=== PATIENT | male | born 1955 | race Caucasian/White ===

== ENCOUNTER 2016-07-02 16:36 | Emergency (ER) | payer MEDICARE ==
[~2016-07-02] VITALS: Wt 70.8 kg
--- NOTE | ~2016-07-02 | EKG ---
[place], [place] ELECTROCARDIOGRAM REPORT NAME: ADIEN BUSTAMANTE UNIT #: [id number] ROOM: DOCTOR: GORAN SNELL MD BIRTHDATE: [birth year] DOS: 07/02/2016 FINDINGS: 1. Sinus rhythm at the rate of 77 with left atrial enlargement. 2. Right bundle-branch block. 3. Abnormal electrocardiogram. GORAN SNELL MD CM:EKGRPT:ELECTROCARDIOGRAM REPORT [id number] GORAN SNELL MD
[~2016-07-02 16:36] MED LIST: ADVAIR 100/501 E1 INH; ALBUTEROL0.09 MG/A2 IH; AMBIEN5 MG PO; ASPIRIN325 MG PO; ASPIRIN81 M1 PO; FLEXERIL10 MG PO; HYDROCODONE BIT1 T11 PO; IMDUR SA30 MG PO; KEPPRA500 MG PO; LEVOFLOXACIN500 MG PO; LIPITOR20 MG PO; METOPROLOL SUCC25 M2 PO; MOTRIN800 MG PO; PERCOCET 325 MG1 TA7 PO; PREDNICOT20 MG PO; PREDNISONE20 MG PO; SPIRIVA18 MCG; SYMBICORT1 AE1; ULTRAM50 MG PO; ZOLOFT; ZOLOFT100 MG PO
[2016-07-02 17:49] LABS: BASO # 0.1 10*3/uL (0.0-0.1); BASO % 0.6 % (0.0-1.0); EOS # 0.1 10*3/uL (0.0-0.4); HEMATOCRIT 41.9 % (42.0-52.0); HEMOGLOBIN 14.3 g/dl (14.0-18.0); LYMPH # 2.3 10*3/uL (1.3-4.4); LYMPH % 25.3 % (27.0-41.0); MEAN CORPUSCULAR HGB 33.1 pg (27.0-31.0); MEAN CORPUSCULAR HGB CONC 34.1 g/dl (33.0-37.0); MEAN PLATELET VOLUME 8.7 fl (9.6-12.3); MONO # 0.7 10*3/uL (0.1-1.0); MONO % 8.1 % (3.0-9.0); NEUT # 5.8 10*3/uL (2.3-7.9); NEUT % 64.8 % (47.0-73.0); PLATELET COUNT AUTOMATED 302 10*3/uL (130-400); RED BLOOD COUNT 4.32 10*6/uL (4.50-5.90); RED CELL DISTRI WIDTH 13.1 % (0-14.5)
[2016-07-02 18:09] LABS: BUN 10 mg/dl (7-24); CARBON DIOXIDE 25 mmol/L (21-32); CHLORIDE 100 mmol/L (98-107); EST GLOM FILT AFRICAN AMERICAN > 60 ml/min; GLUCOSE 76 mg/dL (65-99); POTASSIUM 3.9 mmol/L (3.5-5.1); SODIUM 132 mmol/L (136-145)
[2016-07-02 18:10] LABS: TROPONIN I < 0.015 ng/ml (<0.045)
== END 2016-07-02 18:27 | disposition home or self-care (01) ==
LOC: ED 16:36
PROVIDERS: Emergency Medicine
DX: S46.912A Strain of unspecified muscle, fascia and tendon at shoulder and upper arm level, left arm, initial encounter (principal); J44.9 Chronic obstructive pulmonary disease, unspecified; F32.9 Major depressive disorder, single episode, unspecified; G40.909 Epilepsy, unspecified, not intractable, without status epilepticus; F17.200 Nicotine dependence, unspecified, uncomplicated; Z86.2 Personal history of diseases of the blood and blood-forming organs and certain disorders involving the immune mechanism; Z98.890 Other specified postprocedural states; Z90.49 Acquired absence of other specified parts of digestive tract; Z79.899 Other long term (current) drug therapy; W01.198A Fall on same level from slipping, tripping and stumbling with subsequent striking against other object, initial encounter; Y93.89 Activity, other specified; Y92.89 Other specified places as the place of occurrence of the external cause; Y99.9 Unspecified external cause status

== ENCOUNTER 2016-07-07 18:18 | Inpatient (IN) | payer MEDICARE ==
[~2016-07-07] VITALS: Ht 177.8 cm; Wt 60.8 kg
--- NOTE | ~2016-07-07 | CON ---
[place], [place] REPORT OF CONSULTATION NAME: AIDEN BUSTAMANTE UNIT #: [id number] ROOM: 515 DOCTOR: SHARAD EDUARDO MD BIRTHDATE: [birth year] DOS: 07/09/2016 GASTROENDOSCOPIC REPORT HISTORY OF PRESENT ILLNESS: A 61-year-old gentleman who has presented with chief complaint of hematemesis had been called for addressing his GI bleed. Gentleman is drinking approximately 30 to 40 bottle of beer per day 30 or about 40 bottles of beer per day. The patient had a CT scan of the abdomen done, no acute findings. CBC: White blood cell was 4, H and H of 14 and 41, platelets 302. Basic metabolic panel, GFR greater than 60. Electrolytes balanced. Troponin within normal limits. Chest x-ray, no acute pathology, left humerus, no acute pathology, no fracture. Lactic acid was 2.8, lactic acid followup was 1.0. CT scan of the abdomen and pelvic reassessment, wall thickening of the distal esophagus suggestive of esophagitis, consider evaluation with endoscopy was recommended. Serum alcohol level was less than 3 despite him drinking 40 bottles of beer. His H and H did not drop. His drug screening was negative. Hemoglobin A1c is 5. No acute pathology otherwise. PAST MEDICAL HISTORY: Associated back pain, neck pain otherwise, history of seizure, history of ETOH and nicotine dependency. History of falling episode. PAST SURGICAL HISTORY: Back, neck, appendectomy, rotator cuff. SOCIAL HISTORY: Smoker and alcohol consumer. FAMILY HISTORY: Noncontributory. ALLERGIES: To no known medications. MEDICATIONS: Medication list has been reviewed including aspirin, atorvastatin, metoprolol, naproxen, isosorbide. REVIEW OF SYSTEMS: In general, HEENT: Denies double vision, blurred vision. RESPIRATORY: Denies shortness of breath. CARDIOVASCULAR: Denies chest pain. DIGESTIVE SYSTEM: Hematemesis, abnormal CT scan of the esophagus. NEUROMUSCULOSKELETAL: No muscle wasting, tremens. PHYSICAL EXAMINATION: VITAL SIGNS: Stable. HEENT: Head normocephalic, nontraumatic. Mouth and buccal mucosa benign. NECK: Supple, no thyromegaly. CHEST: Symmetric anatomy, equal expansion. No wheeze, no rhonchi. HEART: Normal sinus rhythm, no gallop, no murmur. ABDOMEN: Soft. No hepato-organomegaly. Bowel sounds present. No evidence of ascites. No pain. EXTREMITIES: No cyanosis, no pedal edema. NEUROLOGIC: Alert, oriented to time, place, person. Sensory, motor intact. Cranial nerves 2-12 intact. [place], [place] REPORT OF CONSULTATION NAME: AIDEN BUSTAMANTE UNIT #: [id number] ROOM: [facility] DOCTOR: SHARAD EDUARDO MD BIRTHDATE: [birth year] LABORATORY DATA: Reviewed. Records reviewed. GFR normal. Liver function test normal. IMPRESSION: Hematemesis, chronic obstructive pulmonary disease, nicotine and alcohol dependency, anxiety, old history of depression and seizure. PLAN AND DISCUSSION: We will organize EGD today. SHARAD EDUARDO MD CM:CONSTR:REPORT OF CONSULTATION 1215 07/10/16 0256 interface
[2016-07-07 18:18] VITALS: BP 103/71
[2016-07-07] MEDS ORDERED: CYCLOBENZAPRINE10 MG PO (18:41)
[2016-07-07] MEDS ORDERED: NAPROSYN500 MG PO (18:41)
[2016-07-07] MEDS ORDERED: ISOSORBIDE DINI30 MG PO (18:43)
[2016-07-07 19:08] LABS: BASO # 0.1 10*3/uL (0.0-0.1); BASO % 0.7 % (0.0-1.0); EOS # 0.1 10*3/uL (0.0-0.4); EOS % 1.2 % (1.0-4.0); HEMATOCRIT 45.2 % (42.0-52.0); HEMOGLOBIN 15.7 g/dl (14.0-18.0); LYMPH # 1.9 10*3/uL (1.3-4.4); LYMPH % 25.1 % (27.0-41.0); MEAN CELL VOLUME 94.8 fl (80.0-94.0); MEAN CORPUSCULAR HGB 32.9 pg (27.0-31.0); MEAN CORPUSCULAR HGB CONC 34.7 g/dl (33.0-37.0); MEAN PLATELET VOLUME 9.3 fl (9.6-12.3); MONO # 0.5 10*3/uL (0.1-1.0); MONO % 6.8 % (3.0-9.0); NEUT % 66.1 % (47.0-73.0); PLATELET COUNT AUTOMATED 325 10*3/uL (130-400); RED BLOOD COUNT 4.77 10*6/uL (4.50-5.90); RED CELL DISTRI WIDTH 13.1 % (0-14.5); WHITE BLOOD COUNT 7.5 10*3/uL (4.8-10.8)
[2016-07-07 19:26] LABS: INTERNATIONAL NORM RATIO 0.9 (2.0-3.5); PROTHROMBIN TIME 9.6 SECONDS (9.0-12.4)
[2016-07-07 19:30] LABS: ALKALINE PHOSPHATASE 86 U/L (45-117); BILIRUBIN, TOTAL 0.8 mg/dl (0.2-1.0); BUN 10 mg/dl (7-24); CARBON DIOXIDE 25 mmol/L (21-32); CHLORIDE 98 mmol/L (98-107); EST GLOM FILT AFRICAN AMERICAN > 60 ml/min; GLUCOSE 85 mg/dL (65-99); MAGNESIUM 2.2 mg/dL (1.5-2.1); POTASSIUM 3.9 mmol/L (3.5-5.1); SGOT/AST 135 IU/L (3-35); SGPT/ALT 133 U/L (12-78); SODIUM 137 mmol/L (136-145); TOTAL PROTEIN 7.4 gm/dL (6.4-8.2)
[2016-07-07 19:38] LABS: TROPONIN I < 0.015 ng/ml (<0.045)
[2016-07-07 20:00] VITALS: BP 112/79
[2016-07-07 21:00] VITALS: BP 110/72
[2016-07-07 21:06] LABS: LA>2 REFLEX 2 HR DRAW NOW
[2016-07-07 22:00] VITALS: BP 117/79
[2016-07-08] VITALS: BP 139/82
[2016-07-08 00:20] VITALS: BP 139/82
[2016-07-08 00:25] LABS: HEMATOCRIT 42.7 % (42.0-52.0); HEMOGLOBIN 14.7 g/dl (14.0-18.0)
[2016-07-08] MEDS ORDERED: KEPPRA750 MG PO (01:23)
[2016-07-08] MEDS ORDERED: ZOLOFT50 MG PO (01:25)
[2016-07-08 06:41] LABS: BASO # 0.1 10*3/uL (0.0-0.1); BASO % 0.8 % (0.0-1.0); EOS # 0.1 10*3/uL (0.0-0.4); EOS % 1.3 % (1.0-4.0); HEMATOCRIT 43.9 % (42.0-52.0); HEMOGLOBIN 14.7 g/dl (14.0-18.0); LYMPH # 1.8 10*3/uL (1.3-4.4); LYMPH % 19.5 % (27.0-41.0); MEAN CORPUSCULAR HGB 32.9 pg (27.0-31.0); MEAN CORPUSCULAR HGB CONC 33.5 g/dl (33.0-37.0); MEAN PLATELET VOLUME 9.4 fl (9.6-12.3); MONO # 0.8 10*3/uL (0.1-1.0); MONO % 8.8 % (3.0-9.0); NEUT # 6.4 10*3/uL (2.3-7.9); NEUT % 69.3 % (47.0-73.0); PLATELET COUNT AUTOMATED 314 10*3/uL (130-400); RED BLOOD COUNT 4.47 10*6/uL (4.50-5.90); RED CELL DISTRI WIDTH 13.3 % (0-14.5); WHITE BLOOD COUNT 9.2 10*3/uL (4.8-10.8)
[2016-07-08 06:44] LABS: MEAN CELL VOLUME 98.2 fl (80.0-94.0)
[2016-07-08 06:47] LABS: URINE AMPHETAMINES < 1000 (1000ng/ml); URINE BARBITURATES < 200 (200ng/ml); URINE COCAINE < 300 (300ng/ml)
[2016-07-08 06:57] LABS: HEMOGLOBIN A1c 5.3 % (4.8-5.6)
[2016-07-08 07:17] LABS: BUN 10 mg/dl (7-24); CARBON DIOXIDE 29 mmol/L (21-32); CHLORIDE 103 mmol/L (98-107); CHOLESTEROL 190 mg/dL (<200); EST GLOM FILT AFRICAN AMERICAN > 60 ml/min; FREE T4 0.96 ng/dl (0.76-1.46); GLUCOSE 72 mg/dL (65-99); MAGNESIUM 2.3 mg/dL (1.5-2.1); PHOSPHOROUS 3.3 mg/dL (2.5-4.9); POTASSIUM 4.4 mmol/L (3.5-5.1); SODIUM 141 mmol/L (136-145); TRIGLYCERIDES 98 mg/dl (<150); VLDL CHOLESTEROL 20 mg/dL (6-40)
[2016-07-08 07:24] LABS: HDL CHOLESTEROL 82 mg/dl (40-60); LDL CHOLESTEROL 88 mg/dL (9-159)
[2016-07-08 07:38] LABS: FOLIC ACID 18.49 ng/mL (>5.38); VITAMIN D, 25-HYDROXY 33.3 ng/mL (30-100)
[2016-07-08 08:00] VITALS: BP 123/86
[2016-07-08 12:00] VITALS: BP 126/81
[2016-07-08] MEDS ORDERED: IMDUR SA30 MG PO (14:39)
[2016-07-08 16:00] VITALS: BP 119/65
[2016-07-08 20:00] VITALS: BP 118/80
[2016-07-09] VITALS: BP 123/86
[2016-07-09 06:58] LABS: BASO % 0.6 % (0.0-1.0); EOS # 0.1 10*3/uL (0.0-0.4); EOS % 1.9 % (1.0-4.0); HEMATOCRIT 42.1 % (42.0-52.0); HEMOGLOBIN 14.1 g/dl (14.0-18.0); LYMPH % 28.4 % (27.0-41.0); MEAN CELL VOLUME 98.4 fl (80.0-94.0); MEAN CORPUSCULAR HGB 32.9 pg (27.0-31.0); MEAN CORPUSCULAR HGB CONC 33.5 g/dl (33.0-37.0); MEAN PLATELET VOLUME 9.8 fl (9.6-12.3); MONO # 0.8 10*3/uL (0.1-1.0); NEUT # 4.1 10*3/uL (2.3-7.9); PLATELET COUNT AUTOMATED 279 10*3/uL (130-400); RED BLOOD COUNT 4.28 10*6/uL (4.50-5.90); RED CELL DISTRI WIDTH 13.3 % (0-14.5)
[2016-07-09 07:32] LABS: CHLORIDE 106 mmol/L (98-107); POTASSIUM 3.9 mmol/L (3.5-5.1); SODIUM 140 mmol/L (136-145)
[2016-07-09 07:36] LABS: BUN 10 mg/dl (7-24); CARBON DIOXIDE 31 mmol/L (21-32); EST GLOM FILT AFRICAN AMERICAN > 60 ml/min; GLUCOSE 105 mg/dL (65-99)
[2016-07-09 08:00] VITALS: BP 128/78
[2016-07-09 11:03] VITALS: BP 128/78
== END 2016-07-09 13:00 | disposition left against medical advice (07) | DRG 378 ==
LOC: ED 18:18 → EDHOLD 22:09 → 5E 22:09 → ICCU 22:32 → 5E 23:40
PROVIDERS: Internal Medicine; Student in an Organized Health Care Education/Training Program
DX: K92.2 Gastrointestinal hemorrhage, unspecified (principal); E87.2 Acidosis; F32.9 Major depressive disorder, single episode, unspecified; Z53.21 Procedure and treatment not carried out due to patient leaving prior to being seen by health care provider; J44.9 Chronic obstructive pulmonary disease, unspecified; G40.909 Epilepsy, unspecified, not intractable, without status epilepticus; E78.5 Hyperlipidemia, unspecified; F41.9 Anxiety disorder, unspecified; F19.10 Other psychoactive substance abuse, uncomplicated; F17.200 Nicotine dependence, unspecified, uncomplicated; Z90.49 Acquired absence of other specified parts of digestive tract; Z80.41 Family history of malignant neoplasm of ovary; Z79.82 Long term (current) use of aspirin; Z79.899 Other long term (current) drug therapy

== ENCOUNTER 2016-10-06 18:54 | Emergency (ER) | payer MEDICARE ==
[~2016-10-06 18:54] MED LIST changes: +CYCLOBENZAPRINE10 MG PO; +ISOSORBIDE DINI30 MG PO; +KEPPRA750 MG PO; +NAPROSYN500 MG PO; +ZOLOFT50 MG PO
== END 2016-10-06 22:49 | disposition home or self-care (01) ==
LOC: ED 18:54
DX: S40.022A Contusion of left upper arm, initial encounter (principal); F17.200 Nicotine dependence, unspecified, uncomplicated; Z79.899 Other long term (current) drug therapy; W18.39XA Other fall on same level, initial encounter; Y93.89 Activity, other specified; Y92.89 Other specified places as the place of occurrence of the external cause; Y99.8 Other external cause status

== ENCOUNTER 2017-01-19 01:01 | Inpatient (IN) | payer MEDICARE ==
[2017-01-19] VITALS (7 sets, daily range): BP systolic 88–113; BP diastolic 59–72
[~2017-01-19] VITALS: Ht 177.8 cm; Wt 62.3 kg
[2017-01-19] MEDS ORDERED: NAPROXEN500 MG PO (01:24)
--- NOTE | 2017-01-19 01:24 | NUR ---
PATIENT UNSURE OF MEDICATIONS AND DOSES
[2017-01-19 01:28] LABS: BASO # 0.1 10*3/uL (0.0-0.1); BASO % 0.8 % (0.0-1.0); EOS # 0.1 10*3/uL (0.0-0.4); EOS % 1.4 % (1.0-4.0); HEMATOCRIT 42.2 % (42.0-52.0); HEMOGLOBIN 14.4 g/dl (14.0-18.0); LYMPH # 1.9 10*3/uL (1.3-4.4); LYMPH % 25.8 % (27.0-41.0); MEAN CELL VOLUME 98.6 fl (80.0-94.0); MEAN CORPUSCULAR HGB 33.6 pg (27.0-31.0); MEAN CORPUSCULAR HGB CONC 34.1 g/dl (33.0-37.0); MEAN PLATELET VOLUME 9.2 fl (9.6-12.3); MONO # 0.5 10*3/uL (0.1-1.0); MONO % 6.3 % (3.0-9.0); NEUT # 4.8 10*3/uL (2.3-7.9); NEUT % 65.6 % (47.0-73.0); PLATELET COUNT AUTOMATED 292 10*3/uL (130-400); RED BLOOD COUNT 4.28 10*6/uL (4.50-5.90); RED CELL DISTRI WIDTH 13.2 % (0-14.5); WHITE BLOOD COUNT 7.3 10*3/uL (4.8-10.8)
[2017-01-19 01:38] LABS: ACT PARTIAL THROMBO TIME 28.3 SECONDS (20.8-31.5); INTERNATIONAL NORM RATIO 0.9 (2.0-3.5)
[2017-01-19 01:44] LABS: ALBUMIN 3.6 gm/dl (3.1-4.5); ALKALINE PHOSPHATASE 75 U/L (45-117); BUN 9 mg/dl (7-24); CHLORIDE 100 mmol/L (98-107); CREATININE 0.68 mg/dL (0.70-1.30); LIPASE 119 U/L (73-393); POTASSIUM 3.9 mmol/L (3.5-5.1); SGOT/AST 21 IU/L (3-35); SGPT/ALT 30 U/L (12-78); SODIUM 136 mmol/L (136-145); TOTAL PROTEIN 7.4 gm/dL (6.4-8.2)
[2017-01-19 01:45] LABS: TROPONIN I < 0.015 ng/ml (<0.045)
[2017-01-19 02:15] LABS: BILIRUBIN NEGATIVE (NEGATIVE); BLOOD NEGATIVE (NEGATIVE); CLARITY CLEAR (CLEAR); COLOR YELLOW (YELLOW); GLUCOSE NEGATIVE (NEGATIVE); KETONE NEGATIVE (NEGATIVE); LEUKO ESTERASE NEGATIVE (NEGATIVE); NITRITE NEGATIVE (NEGATIVE); SPECIFIC GRAVITY <= 1.005 (1.005-1.030); UROBILINOGEN 0.2 E.U./dl (0.2-1.0)
[2017-01-19 02:22] LABS: EPITHELIAL CELLS 0-5
[2017-01-19 02:23] LABS: RBC 0-2 rbc/hpf (0-2)
[2017-01-19 02:24] LABS: URINE AMPHETAMINES < 1000 (1000ng/ml); URINE BARBITURATES < 200 (200ng/ml); URINE BENZODIAZEPINES < 200 (200ng/ml); URINE CANNABINOIDS (THC) < 50 (50ng/ml); URINE COCAINE < 300 (300ng/ml); URINE METHADONE < 300 (300ng/ml); URINE OPIATES < 300 (300ng/ml); URINE PHENCYCLIDINE < 25 (25ng/ml)
--- NOTE | 2017-01-19 02:45 | NUR ---
ATTEMPTED TO CALL REPORT
--- NOTE | 2017-01-19 03:20 | NUR ---
A 62, admitted to , under the services of BLANQUITA Escobedo DO with a diagnosis of ALCOHOL INTOXICATION AND UPPER GI BLEED. Chief complaint is NAUSEA. Patient arrived via OTHER from ER. Monitor applied. Initial assessment completed. Vital signs taken and recorded. BLANQUITA ESCOBEDO DO notified of admission to the unit. Orders received. See assessment for past medical history, medications and allergies. Patient and/or family oriented to unit. [facility]. Clothing/patient valuable form completed. SARAHI PATEL
[2017-01-19] MEDS ORDERED: PROAIR HFA8.5 GM INH (03:54)
[2017-01-19 06:32] LABS: BASO # 0.1 10*3/uL (0.0-0.1); BASO % 0.8 % (0.0-1.0); EOS # 0.1 10*3/uL (0.0-0.4); HEMATOCRIT 39.7 % (42.0-52.0); HEMOGLOBIN 13.2 g/dl (14.0-18.0); LYMPH % 33.9 % (27.0-41.0); MEAN CELL VOLUME 98.3 fl (80.0-94.0); MEAN CORPUSCULAR HGB 32.7 pg (27.0-31.0); MEAN CORPUSCULAR HGB CONC 33.2 g/dl (33.0-37.0); MEAN PLATELET VOLUME 8.9 fl (9.6-12.3); MONO # 0.4 10*3/uL (0.1-1.0); MONO % 7.2 % (3.0-9.0); NEUT # 3.3 10*3/uL (2.3-7.9); NEUT % 55.8 % (47.0-73.0); PLATELET COUNT AUTOMATED 281 10*3/uL (130-400); RED BLOOD COUNT 4.04 10*6/uL (4.50-5.90); RED CELL DISTRI WIDTH 13.1 % (0-14.5)
[2017-01-19 06:46] LABS: CHLORIDE 109 mmol/L (98-107); SODIUM 141 mmol/L (136-145)
[2017-01-19 06:56] LABS: ALKALINE PHOSPHATASE 66 U/L (45-117); BUN 6 mg/dl (7-24); CHOLESTEROL 160 mg/dL (<200); CREATININE 0.63 mg/dL (0.70-1.30); HDL CHOLESTEROL 58 mg/dl (40-60); LDL CHOLESTEROL 60 mg/dL (9-159); PHOSPHOROUS 3.6 mg/dL (2.5-4.9); SGOT/AST 17 IU/L (3-35); SGPT/ALT 25 U/L (12-78); TOTAL PROTEIN 6.1 gm/dL (6.4-8.2); TRIGLYCERIDES 209 mg/dl (<150); VLDL CHOLESTEROL 42 mg/dL (6-40)
[2017-01-19 07:00] LABS: ACT PARTIAL THROMBO TIME 28.9 SECONDS (20.8-31.5); INTERNATIONAL NORM RATIO 0.9 (2.0-3.5)
--- NOTE | 2017-01-19 07:01 | NUR ---
DR. EDUARDO NOTIFIED OF CONSULT. THE DOCTOR WAS UPDATED ABOUT THE PATIENTS CONDITION AND LABS. NO CONCERNS FROM THE DOCTOR.
--- NOTE | 2017-01-19 08:49 | NUR ---
PT RESTING COMFORTABLY IN BED. NO SIGNS OF DISTRESS OR WITHDRAWL.
[2017-01-19] MEDS ORDERED: PROTONIX40 MG PO (11:27)
[2017-01-19] MEDS ORDERED: CARAFATE1 G1 PO (11:27)
[2017-01-19 11:31] LABS: VITAMIN D, 25-HYDROXY 31.8 ng/mL (30-100)
--- NOTE | 2017-01-19 13:02 | NUR ---
Discharge instructions reviewed with patient/family. Patient receptive and verbalizes understanding. Follow-up care arranged. Written instructions given to patient/family. PAMELLA ALEX
== END 2017-01-19 13:02 | disposition left against medical advice (07) | DRG 379 ==
LOC: ED 01:01 → EDHOLD 02:29 → 4E 02:37
PROVIDERS: Emergency Medicine Emergency Medical Services; Hospitalist; ADMIT Internal Medicine
DX: K92.2 Gastrointestinal hemorrhage, unspecified (principal); D64.9 Anemia, unspecified; E78.5 Hyperlipidemia, unspecified; F10.229 Alcohol dependence with intoxication, unspecified; I10 Essential (primary) hypertension; F41.9 Anxiety disorder, unspecified; F32.9 Major depressive disorder, single episode, unspecified; J41.8 Mixed simple and mucopurulent chronic bronchitis; G40.909 Epilepsy, unspecified, not intractable, without status epilepticus; Z79.82 Long term (current) use of aspirin; Z79.899 Other long term (current) drug therapy; Z91.81 History of falling; Z90.49 Acquired absence of other specified parts of digestive tract; Z72.0 Tobacco use; Z80.41 Family history of malignant neoplasm of ovary; Z71.6 Tobacco abuse counseling; Z71.41 Alcohol abuse counseling and surveillance of alcoholic; Z71.89 Other specified counseling

== ENCOUNTER 2019-01-25 15:13 | Emergency (ER) | payer MEDICARE ==
[~2019-01-25] VITALS: Ht 177.8 cm; Wt 73.0 kg
[~2019-01-25 15:13] MED LIST changes: +CARAFATE1 G1 PO; +NAPROXEN500 MG PO; +PROAIR HFA8.5 GM INH; +PROTONIX40 MG PO
[2019-01-25 16:04] LABS: BASO # 0.1 10*3/uL (0.0-0.1); BASO % 0.7 % (0.0-1.0); EOS # 0.1 10*3/uL (0.0-0.4); EOS % 1.2 % (1.0-4.0); HEMATOCRIT 43.1 % (42.0-52.0); HEMOGLOBIN 14.1 g/dl (14.0-18.0); LYMPH # 1.4 10*3/uL (1.3-4.4); LYMPH % 20.1 % (27.0-41.0); MEAN CELL VOLUME 96.6 fl (80.0-94.0); MEAN CORPUSCULAR HGB 31.6 pg (27.0-31.0); MEAN CORPUSCULAR HGB CONC 32.7 g/dl (33.0-37.0); MEAN PLATELET VOLUME 8.7 fl (9.6-12.3); MONO # 0.6 10*3/uL (0.1-1.0); MONO % 8.4 % (3.0-9.0); NEUT # 4.8 10*3/uL (2.3-7.9); NEUT % 69.3 % (47.0-73.0); PLATELET COUNT AUTOMATED 302 10*3/uL (130-400); RED BLOOD COUNT 4.46 10*6/uL (4.50-5.90); WHITE BLOOD COUNT 6.9 10*3/uL (4.8-10.8)
[2019-01-25 16:16] LABS: BILIRUBIN NEGATIVE (NEGATIVE); BLOOD NEGATIVE (NEGATIVE); CLARITY CLEAR (CLEAR); COLOR YELLOW (YELLOW); GLUCOSE NEGATIVE (NEGATIVE); KETONE NEGATIVE (NEGATIVE); LEUKO ESTERASE NEGATIVE (NEGATIVE); NITRITE NEGATIVE (NEGATIVE); SPECIFIC GRAVITY <= 1.005 (1.005-1.030); UROBILINOGEN 0.2 E.U./dl (0.2-1.0)
[2019-01-25 16:17] LABS: ACT PARTIAL THROMBO TIME 27.9 SECONDS (20.0-32.1); BUN 13 mg/dl (7-24); CHLORIDE 103 mmol/L (98-107); CREATININE 0.66 mg/dL (0.70-1.30); INTERNATIONAL NORM RATIO 0.9 (2.0-3.5); POTASSIUM 4.1 mmol/L (3.5-5.1); SODIUM 136 mmol/L (136-145)
[2019-01-25 16:29] LABS: BACTERIA TRACE; EPITHELIAL CELLS 0-2; RBC 0-2 rbc/hpf (0-2); WBC 0-2 wbc/hpf (0-5)
== END 2019-01-25 17:03 | disposition home or self-care (01) ==
LOC: ED 15:13
PROVIDERS: Emergency Medicine
DX: S00.03XA Contusion of scalp, initial encounter (principal); G40.909 Epilepsy, unspecified, not intractable, without status epilepticus; J44.9 Chronic obstructive pulmonary disease, unspecified; G89.29 Other chronic pain; F17.210 Nicotine dependence, cigarettes, uncomplicated; Z79.899 Other long term (current) drug therapy; Z90.49 Acquired absence of other specified parts of digestive tract; W13.3XXA Fall through floor, initial encounter; Y93.89 Activity, other specified; Y92.090 Kitchen in other non-institutional residence as the place of occurrence of the external cause; Y99.8 Other external cause status

== ENCOUNTER 2020-02-21 19:25 | Emergency (ER) | payer MEDICARE ==
[2020-02-21 20:15] LABS: BASO # 0.1 10*3/uL (0.0-0.1); BASO % 0.9 % (0.0-1.0); EOS # 0.1 10*3/uL (0.0-0.4); EOS % 1.1 % (1.0-4.0); HEMATOCRIT 42.8 % (42.0-52.0); LYMPH # 1.5 10*3/uL (1.3-4.4); LYMPH % 27.6 % (27.0-41.0); MEAN CELL VOLUME 96.4 fl (80.0-94.0); MEAN CORPUSCULAR HGB 32.2 pg (27.0-31.0); MEAN CORPUSCULAR HGB CONC 33.4 g/dl (33.0-37.0); MEAN PLATELET VOLUME 8.3 fl (9.6-12.3); MONO # 0.5 10*3/uL (0.1-1.0); MONO % 8.9 % (3.0-9.0); NEUT # 3.4 10*3/uL (2.3-7.9); NEUT % 61.3 % (47.0-73.0); PLATELET COUNT AUTOMATED 349 10*3/uL (130-400); RED BLOOD COUNT 4.44 10*6/uL (4.50-5.90); RED CELL DISTRI WIDTH 12.6 % (0-14.5); WHITE BLOOD COUNT 5.5 10*3/uL (4.8-10.8)
[2020-02-21 20:30] LABS: ALBUMIN 3.3 gm/dl (3.1-4.5); ALKALINE PHOSPHATASE 86 U/L (45-117); BUN 6 mg/dl (7-24); CHLORIDE 99 mmol/L (98-107); CREATININE 0.76 mg/dL (0.70-1.30); POTASSIUM 3.6 mmol/L (3.5-5.1); SGOT/AST 19 IU/L (3-35); SGPT/ALT 20 U/L (12-78); SODIUM 133 mmol/L (136-145); TOTAL PROTEIN 6.9 gm/dL (6.4-8.2)
[2020-02-21 21:15] LABS: BILIRUBIN Negative (Negative); BLOOD Negative (Negative); CLARITY Clear (Clear); COLOR Yellow (Yellow); GLUCOSE Negative (Negative); KETONE Negative (Negative); LEUKO ESTERASE Negative (Negative); NITRITE Negative (Negative); PH 6.5 (4.5-8.0); SPECIFIC GRAVITY 1.015 (1.001-1.030); UROBILINOGEN 0.2 E.U./dl (0.0-1.0)
[2020-02-21 21:16] LABS: BACTERIA TRACE; RBC 0-2 rbc/hpf (0-2); WBC 0-2 wbc/hpf (0-5)
== END 2020-02-21 21:45 | disposition home or self-care (01) ==
LOC: ED 19:25
PROVIDERS: Nurse Practitioner Family
DX: R56.9 Unspecified convulsions (principal); Z79.899 Other long term (current) drug therapy; Z90.49 Acquired absence of other specified parts of digestive tract; Z98.890 Other specified postprocedural states

== ENCOUNTER 2020-03-01 15:03 | Inpatient (IN) | payer MEDICARE ==
[~2020-03-01] VITALS: Ht 177.8 cm; Wt 57.7 kg
[2020-03-01 15:09] VITALS: BP 101/64
[2020-03-01] MEDS ORDERED: ANORO ELLIPTA1 EACH INH (15:27)
[2020-03-01] MEDS ORDERED: MIRTAZAPINE15 M2 PO (15:27)
[2020-03-01] MEDS ORDERED: SERTRALINE HYD100 MG PO (15:27)
[2020-03-01 15:45] LABS: BASO % 0.5 % (0.0-1.0); EOS % 0.2 % (1.0-4.0); HEMATOCRIT 46.4 % (42.0-52.0); LYMPH # 0.6 10*3/uL (1.3-4.4); LYMPH % 9.7 % (27.0-41.0); MEAN CELL VOLUME 91.9 fl (80.0-94.0); MEAN CORPUSCULAR HGB 32.9 pg (27.0-31.0); MEAN CORPUSCULAR HGB CONC 35.8 g/dl (33.0-37.0); MONO # 0.5 10*3/uL (0.1-1.0); MONO % 8.4 % (3.0-9.0); NEUT # 5.1 10*3/uL (2.3-7.9); NEUT % 80.7 % (47.0-73.0); PLATELET COUNT AUTOMATED 331 10*3/uL (130-400); RED BLOOD COUNT 5.05 10*6/uL (4.50-5.90); WHITE BLOOD COUNT 6.3 10*3/uL (4.8-10.8)
[2020-03-01 15:56] LABS: ACT PARTIAL THROMBO TIME 33.1 SECONDS (20.0-32.1); INTERNATIONAL NORM RATIO 0.9 (2.0-3.5)
[2020-03-01 16:05] LABS: ALBUMIN 4.1 gm/dl (3.1-4.5); ALKALINE PHOSPHATASE 113 U/L (45-117); BUN 13 mg/dl (7-24); CHLORIDE 85 mmol/L (98-107); CPK 131 U/L (39-308); POTASSIUM 3.8 mmol/L (3.5-5.1); SGOT/AST 107 IU/L (3-35); SGPT/ALT 107 U/L (12-78); SODIUM 122 mmol/L (136-145); TOTAL PROTEIN 8.4 gm/dL (6.4-8.2)
[2020-03-01 16:17] LABS: ETHYL ALCOHOL < 3.0 mg/dl (<3); TROPONIN I < 0.015 ng/ml (<0.045)
[2020-03-01 16:23] LABS: BILIRUBIN Negative (Negative); BLOOD Negative (Negative); CLARITY Cloudy (Clear); COLOR Yellow (Yellow); GLUCOSE Negative (Negative); KETONE 2+ (Negative); LEUKO ESTERASE Negative (Negative); NITRITE Negative (Negative); PH 5.5 (4.5-8.0); SPECIFIC GRAVITY 1.015 (1.001-1.030)
[2020-03-01 16:41] LABS: BACTERIA 1+; HYALINE CAST 41-50; RBC 0-2 rbc/hpf (0-2)
[2020-03-01 18:15] VITALS: BP 105/78
--- NOTE | 2020-03-01 18:18 | NUR ---
RECEIVING INPATIENT NURSE NOTIFIED THAT CT HAS REQUESTED PATIENT BE TRANSPORTED TO RADIOLOGY ON THE WAY TO THE INPATIENT FLOOR AND THAT PATIENT WILL BE TRANSPORTED TO 4E AFTER HE GETS CT.
[2020-03-01 19:00] VITALS: BP 106/66
--- NOTE | 2020-03-01 19:05 | NUR ---
A 65, admitted to , under the services of SHIN Santacruz DO with a diagnosis of PERSON UNDER INVESTIGATION COVID-19, VOMITING. Chief complaint is N/V/D X 3 DAYS. Patient arrived via bed from ER. Monitor applied. Initial assessment completed. Vital signs taken and recorded. SHIN SANTACRUZ DO notified of admission to the unit. Orders received. See assessment for past medical history, medications and allergies. Patient and/or family oriented to unit. [address] visitation policy reviewed. Clothing/patient valuable form completed. KATHY LAFLEUR R
[2020-03-01 19:48] LABS: ALBUMIN 4.2 gm/dl (3.1-4.5); BUN 14 mg/dl (7-24); CHLORIDE 86 mmol/L (98-107); CREATININE 1.24 mg/dL (0.70-1.30); POTASSIUM 3.9 mmol/L (3.5-5.1); SODIUM 123 mmol/L (136-145)
--- NOTE | 2020-03-01 21:20 | NUR ---
PT RESTING IN BED. NO SOB NOTED. NO C/O AT THIS TIME. MVI INFUSING WITH NO PROBLEM. CALL LIGHT IN REACH. MEDICATED WITH ROUTINE REMERON FOR INSOMNIA. ALSO MEDICATED WITH ATIVAN FOR ANXIETY, SEE EMAR. CALL LIGHT IN REACH.
--- NOTE | 2020-03-01 22:30 | NUR ---
RESTING IN BED. RESP-EASY AND REGULAR. NO C/O AT THIS TIME. STATES MEDICATIN HELP. CALL LIGHT IN REACH.
[2020-03-01 23:57] LABS: ALBUMIN 3.3 gm/dl (3.1-4.5); BUN 11 mg/dl (7-24); CHLORIDE 92 mmol/L (98-107); CREATININE 0.81 mg/dL (0.70-1.30); POTASSIUM 3.8 mmol/L (3.5-5.1); SODIUM 128 mmol/L (136-145)
[2020-03-02] VITALS: BP 120/61
[2020-03-02 06:31] LABS: BASO % 0.7 % (0.0-1.0); EOS % 0.5 % (1.0-4.0); HEMATOCRIT 40.8 % (42.0-52.0); LYMPH # 1.2 10*3/uL (1.3-4.4); LYMPH % 19.9 % (27.0-41.0); MEAN CELL VOLUME 93.4 fl (80.0-94.0); MEAN CORPUSCULAR HGB 32.5 pg (27.0-31.0); MEAN CORPUSCULAR HGB CONC 34.8 g/dl (33.0-37.0); MEAN PLATELET VOLUME 9.5 fl (9.6-12.3); MONO # 0.9 10*3/uL (0.1-1.0); NEUT # 3.8 10*3/uL (2.3-7.9); NEUT % 63.7 % (47.0-73.0); PLATELET COUNT AUTOMATED 314 10*3/uL (130-400); RED BLOOD COUNT 4.37 10*6/uL (4.50-5.90); RED CELL DISTRI WIDTH 12.1 % (0-14.5); WHITE BLOOD COUNT 5.9 10*3/uL (4.8-10.8)
[2020-03-02 06:40] LABS: ALBUMIN 3.2 gm/dl (3.1-4.5); ALKALINE PHOSPHATASE 84 U/L (45-117); BUN 8 mg/dl (7-24); CHLORIDE 98 mmol/L (98-107); CHOLESTEROL 153 mg/dL (<200); CREATININE 0.75 mg/dL (0.70-1.30); FREE T4 0.94 ng/dl (0.76-1.46); HDL CHOLESTEROL 80 mg/dl (40-60); LDL CHOLESTEROL 60 mg/dL (9-159); LIPASE 107 U/L (73-393); POTASSIUM 3.6 mmol/L (3.5-5.1); SGOT/AST 69 IU/L (3-35); SGPT/ALT 81 U/L (12-78); SODIUM 131 mmol/L (136-145); TOTAL PROTEIN 6.4 gm/dL (6.4-8.2); TRIGLYCERIDES 64 mg/dl (<150); VLDL CHOLESTEROL 13 mg/dL (6-40)
[2020-03-02 08:00] VITALS: BP 135/92
--- NOTE | 2020-03-02 08:40 | NUR ---
PT SLEEPING IN BED, AWAKENS EASILY. RESP-EASY AND REGULAR. TOLERATED ROUTINE MED WITH NO PROBLEM. ATIVAN GIVEN FOR ANXIETY. SEE EMAR. CALL LIGHT IN REACH. SEE SHIFT ASSESSMENT.
--- NOTE | 2020-03-02 09:00 | NUR ---
Helicopter Technician in to talk to patient. Patient states lives at home with girlfriend. There are one steps in the home. Physician: nova johnson Pharmacy: [facility] services: none at present Patient's level of ADLs: independent Patient has working utilities: all working DME: none Follow-up physician's appointment after d/c: will be made by hospitalist nurse director upon discharge Does patient want to access PORTAL?: no Discharge plan attempted to contact patient, no answer. case management contacted patient's girlfriend regarding discharge plan, she stated patient lives at home with her, he is independent in adls and ambulation, he doesn't drive but his grilfriend takes him wherever he needs to go. she stated he doesn't currently have any home services. discussed with her VNA and she would agree patient could use VNA when discharged. she stated to use whatever company is in network with patient's insurance. [facility] is in network, case management will send referral when patient is discharged, case management will follow BRIANNA OLIVARES
--- NOTE | 2020-03-02 09:30 | NUR ---
IV started left hand with #24 angiocath after 2 attempts. The IV site was prepped with Chloraprep. Heparin lock attached. Sterile dressing applied. Patient tolerated precedure well. Procedure performed according to [facility] policy & procedure. KATHY LAFLEUR
--- NOTE | 2020-03-02 09:40 | NUR ---
PT GIVEN PO CONTRAST FOR TEST. STATES MEDICATION EFFECTIVE. NO C/O AT THIS TIME. CALL LIGHT IN REACH.
--- NOTE | 2020-03-02 11:12 | NUR ---
CT CALLED NOT ABLE TO DO IV CONTRAST CT UNTIL AFTER 6PM. HE WAS SCANNED YESTERDAY AND HAS TO BE [address] DE PAZ CALLED MADE AWARE PT DRANK ORAL CONTRAST ALREADY. PER DR. DE PAZ DO TEST AFTER 6PM TONIGHT.
[2020-03-02 12:00] VITALS: BP 133/74
--- NOTE | 2020-03-02 12:39 | NUR ---
LUNCH TRAY BROUGHT TO PT. PT SLEEPING, AWAKENS EASILY. CALL LIGHT IN REACH.
--- NOTE | 2020-03-02 14:00 | NUR ---
PT STOOD TO USE URINAL WAS VERY UNSTABLE. ASSISTED BACK TO BED. BED ALARM ON. CALL LIGHT IN REACH.
[2020-03-02 16:00] VITALS: BP 100/73
[2020-03-02 20:00] VITALS: BP 101/68
--- NOTE | 2020-03-02 21:15 | NUR ---
TOLERATED ROUTINE MED WITH NO PROBLEM. NO C/O AT THIS TIME. CALL LIGHT IN REACH.
--- NOTE | 2020-03-02 23:00 | NUR ---
REPORT RECEIVED FROM [facility] NURSE, ASSUMED CARE OF PATIENT.
--- NOTE | 2020-03-02 23:29 | NUR ---
24 HR chart check completed.
[2020-03-03] VITALS: BP 118/68
[2020-03-03 06:12] LABS: BASO # 0.1 10*3/uL (0.0-0.1); BASO % 0.7 % (0.0-1.0); BUN 6 mg/dl (7-24); CHLORIDE 99 mmol/L (98-107); CREATININE 0.68 mg/dL (0.70-1.30); EOS # 0.1 10*3/uL (0.0-0.4); HEMATOCRIT 38.9 % (42.0-52.0); LYMPH # 1.4 10*3/uL (1.3-4.4); LYMPH % 21.1 % (27.0-41.0); MEAN CELL VOLUME 95.1 fl (80.0-94.0); MEAN CORPUSCULAR HGB 32.8 pg (27.0-31.0); MEAN CORPUSCULAR HGB CONC 34.4 g/dl (33.0-37.0); MEAN PLATELET VOLUME 9.3 fl (9.6-12.3); MONO # 0.8 10*3/uL (0.1-1.0); MONO % 11.1 % (3.0-9.0); NEUT # 4.5 10*3/uL (2.3-7.9); NEUT % 65.8 % (47.0-73.0); PLATELET COUNT AUTOMATED 315 10*3/uL (130-400); POTASSIUM 3.5 mmol/L (3.5-5.1); RED BLOOD COUNT 4.09 10*6/uL (4.50-5.90); RED CELL DISTRI WIDTH 12.3 % (0-14.5); SODIUM 134 mmol/L (136-145); WHITE BLOOD COUNT 6.8 10*3/uL (4.8-10.8)
[2020-03-03 08:00] VITALS: BP 100/73
--- NOTE | 2020-03-03 11:23 | NUR ---
IV FLUIDS INITIATED AT THIS TIME PER ORDER.
[2020-03-03 12:00] VITALS: BP 94/63
[2020-03-03 16:00] VITALS: BP 132/65
--- NOTE | 2020-03-03 16:00 | NUR ---
Patient resting quietly with no c/o discomfort. Respirations easy and regular. Vital signs stable. No overt distress. SANDRA BLAKELY
[2020-03-03 20:00] VITALS: BP 123/80
[2020-03-04] VITALS: BP 148/71
--- NOTE | 2020-03-04 04:00 | NUR ---
PATIENT SLEEPING. NO SIGNS OF DISTRESS. WILL CONTINUE TO MONITOR.
[2020-03-04 06:05] LABS: BUN 6 mg/dl (7-24); CHLORIDE 101 mmol/L (98-107); CREATININE 0.57 mg/dL (0.70-1.30); POTASSIUM 3.5 mmol/L (3.5-5.1); SODIUM 136 mmol/L (136-145)
[2020-03-04 06:11] LABS: BASO # 0.1 10*3/uL (0.0-0.1); BASO % 0.9 % (0.0-1.0); EOS # 0.1 10*3/uL (0.0-0.4); EOS % 1.5 % (1.0-4.0); HEMATOCRIT 38.5 % (42.0-52.0); LYMPH # 1.7 10*3/uL (1.3-4.4); MEAN CELL VOLUME 94.6 fl (80.0-94.0); MEAN CORPUSCULAR HGB 32.4 pg (27.0-31.0); MEAN CORPUSCULAR HGB CONC 34.3 g/dl (33.0-37.0); MEAN PLATELET VOLUME 9.5 fl (9.6-12.3); MONO # 0.6 10*3/uL (0.1-1.0); MONO % 10.4 % (3.0-9.0); PLATELET COUNT AUTOMATED 309 10*3/uL (130-400); RED BLOOD COUNT 4.07 10*6/uL (4.50-5.90); RED CELL DISTRI WIDTH 12.3 % (0-14.5); WHITE BLOOD COUNT 5.4 10*3/uL (4.8-10.8)
--- NOTE | 2020-03-04 07:59 | NUR ---
24 HR chart check completed.
[2020-03-04 08:00] VITALS: BP 132/84
--- NOTE | 2020-03-04 09:00 | NUR ---
RESTING IN BED WITH NO ACUTE DISTRESS NOTED. RESPIRATIONS EASY. LUNGS DIMINISHED WITH INSP WHEEZES. PULSE OX 97% RA. LOOSE COUGH, OCCASIONALLY PRODUCTIVE FOR CLEAR. CALL LIGHT WITHIN REACH. NO VOICED COMPLAINTS
[2020-03-04] MEDS ORDERED: VITAMIN D350 MC2 PO (11:27)
[2020-03-04] MEDS ORDERED: MELATONIN10 M4 PO (11:28)
[2020-03-04 12:00] VITALS: BP 106/66
--- NOTE | 2020-03-04 13:00 | NUR ---
Discharge instructions reviewed with patient/family. Patient receptive and verbalizes understanding. Written instructions given to patient/family. PATIENT DISCHARGED VIA WC TO SIGN[facility]ANT OTHER WHO WAS WAITING AT DOORS WITH KULWINDER GUY
== END 2020-03-04 13:00 | disposition home or self-care (01) | DRG 897 ==
LOC: ED 15:03 → 4E 16:26 → EDHOLD 16:26 → 4E 17:57
PROVIDERS: Emergency Medicine; Family Medicine; Hospitalist; Internal Medicine; ADMIT Internal Medicine; ATTEND Internal Medicine
DX: F10.239 Alcohol dependence with withdrawal, unspecified (principal); D68.9 Coagulation defect, unspecified; E87.1 Hypo-osmolality and hyponatremia; Z68.1 Body mass index [BMI] 19.9 or less, adult; I95.1 Orthostatic hypotension; Z20.822 Contact with and (suspected) exposure to COVID-19; E83.41 Hypermagnesemia; R82.4 Acetonuria; F32.9 Major depressive disorder, single episode, unspecified; J44.9 Chronic obstructive pulmonary disease, unspecified; E78.5 Hyperlipidemia, unspecified; F41.9 Anxiety disorder, unspecified; G40.909 Epilepsy, unspecified, not intractable, without status epilepticus; R74.01 Elevation of levels of liver transaminase levels; R73.9 Hyperglycemia, unspecified; E87.8 Other disorders of electrolyte and fluid balance, not elsewhere classified; F17.210 Nicotine dependence, cigarettes, uncomplicated; R63.4 Abnormal weight loss; Z90.49 Acquired absence of other specified parts of digestive tract; Z79.899 Other long term (current) drug therapy; Z71.41 Alcohol abuse counseling and surveillance of alcoholic

== ENCOUNTER 2021-04-16 18:07 | Emergency (ER) | payer MEDICARE ==
[~2021-04-16] VITALS: Wt 61.2 kg
[~2021-04-16 18:07] MED LIST changes: +ANORO ELLIPTA1 EACH INH; +MELATONIN10 M4 PO; +MIRTAZAPINE15 M2 PO; +SERTRALINE HYD100 MG PO; +VITAMIN D350 MC2 PO
[2021-04-16 18:43] LABS: BASO % 0.5 % (0.0-1.0); EOS # 0.1 10*3/uL (0.0-0.4); EOS % 0.8 % (1.0-4.0); HEMATOCRIT 38.6 % (42.0-52.0); LYMPH # 1.7 10*3/uL (1.3-4.4); LYMPH % 21.4 % (27.0-41.0); MEAN CORPUSCULAR HGB 33.4 pg (27.0-31.0); MEAN CORPUSCULAR HGB CONC 34.5 g/dl (33.0-37.0); MEAN PLATELET VOLUME 8.5 fl (9.6-12.3); MONO # 0.6 10*3/uL (0.1-1.0); MONO % 7.7 % (3.0-9.0); NEUT # 5.4 10*3/uL (2.3-7.9); NEUT % 69.3 % (47.0-73.0); PLATELET COUNT AUTOMATED 280 10*3/uL (130-400); RED BLOOD COUNT 3.98 10*6/uL (4.50-5.90); RED CELL DISTRI WIDTH 13.2 % (0-14.5); WHITE BLOOD COUNT 7.8 10*3/uL (4.8-10.8)
[2021-04-16 18:59] LABS: ALKALINE PHOSPHATASE 74 U/L (45-117); BUN 3 mg/dl (7-24); CHLORIDE 98 mmol/L (98-107); CREATININE 0.62 mg/dL (0.70-1.30); POTASSIUM 3.4 mmol/L (3.5-5.1); SGOT/AST 25 IU/L (3-35); SGPT/ALT 27 U/L (12-78); SODIUM 129 mmol/L (136-145); TOTAL PROTEIN 6.6 gm/dL (6.4-8.2)
== END 2021-04-16 20:32 | disposition home or self-care (01) ==
LOC: ED 18:07
PROVIDERS: Hospitalist
DX: S09.90XA Unspecified injury of head, initial encounter (principal); X58.XXXA Exposure to other specified factors, initial encounter; Y93.89 Activity, other specified; Y92.89 Other specified places as the place of occurrence of the external cause; Y99.8 Other external cause status

== ENCOUNTER 2021-11-17 20:40 | Emergency (ER) | payer MEDICARE ==
[2021-11-17 21:20] LABS: BASO # 0.1 10*3/uL (0.0-0.1); BASO % 0.9 % (0.0-1.0); EOS # 0.1 10*3/uL (0.0-0.4); EOS % 0.9 % (1.0-4.0); HEMATOCRIT 43.3 % (42.0-52.0); LYMPH # 1.4 10*3/uL (1.3-4.4); LYMPH % 20.5 % (27.0-41.0); MEAN CELL VOLUME 97.5 fl (80.0-94.0); MEAN CORPUSCULAR HGB CONC 34.9 g/dl (33.0-37.0); MEAN PLATELET VOLUME 8.7 fl (9.6-12.3); MONO % 13.6 % (3.0-9.0); NEUT # 4.4 10*3/uL (2.3-7.9); NEUT % 63.8 % (47.0-73.0); PLATELET COUNT AUTOMATED 342 10*3/uL (130-400); RED BLOOD COUNT 4.44 10*6/uL (4.50-5.90); RED CELL DISTRI WIDTH 13.2 % (0-14.5)
[2021-11-17 21:31] LABS: ACT PARTIAL THROMBO TIME 30.6 SECONDS (20.0-32.1); INTERNATIONAL NORM RATIO 0.9 (2.0-3.5)
[2021-11-17 21:38] LABS: ALKALINE PHOSPHATASE 96 U/L (45-117); BUN 5 mg/dl (7-24); CHLORIDE 100 mmol/L (98-107); CPK 74 U/L (39-308); POTASSIUM 3.4 mmol/L (3.5-5.1); SGOT/AST 21 IU/L (3-35); SGPT/ALT 21 U/L (12-78); SODIUM 133 mmol/L (136-145); TOTAL PROTEIN 6.8 gm/dL (6.4-8.2)
[2021-11-17] MEDS ORDERED: PLAVIX75 M1 PO (23:01)
[2021-11-17] MEDS ORDERED: ASPIR-TRIN325 MG PO (23:01)
== END 2021-11-17 23:27 | disposition home or self-care (01) ==
LOC: ED 20:40
PROVIDERS: Family Medicine
DX: R53.1 Weakness (principal); R20.0 Anesthesia of skin; F17.200 Nicotine dependence, unspecified, uncomplicated; Z79.899 Other long term (current) drug therapy; Z90.49 Acquired absence of other specified parts of digestive tract; Z98.890 Other specified postprocedural states

== ENCOUNTER 2022-02-25 13:55 | Emergency (ER) | payer MEDICARE ==
[~2022-02-25] VITALS: Wt 59.0 kg
[~2022-02-25 13:55] MED LIST changes: +ASPIR-TRIN325 MG PO; +PLAVIX75 M1 PO
== END 2022-02-25 18:30 | disposition home or self-care (01) ==
LOC: ED 13:55
DX: S43.005A Unspecified dislocation of left shoulder joint, initial encounter (principal); F10.20 Alcohol dependence, uncomplicated; Z90.89 Acquired absence of other organs; Z98.890 Other specified postprocedural states; W01.198A Fall on same level from slipping, tripping and stumbling with subsequent striking against other object, initial encounter; Y93.89 Activity, other specified; Y92.89 Other specified places as the place of occurrence of the external cause; Y99.8 Other external cause status

== ENCOUNTER 2022-11-02 17:13 | Emergency (ER) | payer MEDICARE ==
[~2022-11-02] VITALS: Ht 170.1 cm; Wt 49.9 kg
[~2022-11-02 17:13] MED LIST changes: +ARTHRITIS PAIN150 GM TP; +CYMBALTA30 MG PO; +DICLOFENAC SOD75 MG PO; +TRAZODONE100 MG PO
[2022-11-02 17:56] LABS: BILIRUBIN Negative (Negative); BLOOD Negative (Negative); CLARITY Clear (Clear); COLOR Yellow (Yellow); GLUCOSE Negative (Negative); KETONE Negative (Negative); LEUKO ESTERASE Negative (Negative); NITRITE Negative (Negative); SPECIFIC GRAVITY <= 1.005 (1.001-1.030)
[2022-11-02 18:04] LABS: BASO % 0.7 % (0.0-1.0); HEMATOCRIT 34.7 % (42.0-52.0); LYMPH # 1.1 10*3/uL (1.3-4.4); MEAN CELL VOLUME 90.8 fl (80.0-94.0); MEAN CORPUSCULAR HGB 31.9 pg (27.0-31.0); MEAN CORPUSCULAR HGB CONC 35.2 g/dl (33.0-37.0); MEAN PLATELET VOLUME 8.5 fl (9.6-12.3); MONO # 0.5 10*3/uL (0.1-1.0); MONO % 12.9 % (3.0-9.0); NEUT # 2.4 10*3/uL (2.3-7.9); NEUT % 58.2 % (47.0-73.0); PLATELET COUNT AUTOMATED 280 10*3/uL (130-400); RED BLOOD COUNT 3.82 10*6/uL (4.50-5.90); RED CELL DISTRI WIDTH 12.4 % (0-14.5)
[2022-11-02 18:25] LABS: ALKALINE PHOSPHATASE 104 U/L (46-116); CHLORIDE 82 mmol/L (98-107); LIPASE 26 U/L (12-53); SGPT/ALT 10 U/L (10-49); TOTAL PROTEIN 6.6 gm/dL (6.0-8.0)
[2022-11-02 18:33] LABS: BUN < 5 mg/dl (9-23)
== END 2022-11-02 21:30 | disposition short-term general hospital (02) ==
LOC: ED 17:13
PROVIDERS: Internal Medicine
DX: E87.1 Hypo-osmolality and hyponatremia (principal); R33.9 Retention of urine, unspecified; Z79.899 Other long term (current) drug therapy; Z98.890 Other specified postprocedural states; Z90.49 Acquired absence of other specified parts of digestive tract; F17.200 Nicotine dependence, unspecified, uncomplicated

== ENCOUNTER 2023-08-28 04:52 | Emergency (ER) | payer MEDICARE ==
[~2023-08-28] VITALS: Ht 170.1 cm; Wt 56.2 kg
[~2023-08-28 04:52] MED LIST changes: +ACETAMINOPHEN325 M2 PO; +CARAFATE1 GM PO; +Ipratropium Brom3 ML NEB; +TAMSULOSIN HCL0.4 MG PO; +TRAZODONE150 MG PO
[2023-08-28 05:22] LABS: BILIRUBIN Negative (Negative); BLOOD Negative (Negative); CLARITY Clear (Clear); COLOR Yellow (Yellow); GLUCOSE Negative (Negative); KETONE Negative (Negative); LEUKO ESTERASE Negative (Negative); NITRITE Negative (Negative); PH 7.5 (4.5-8.0); SPECIFIC GRAVITY <= 1.005 (1.001-1.030); UROBILINOGEN 0.2 E.U./dl (0.0-1.0)
[2023-08-28 05:28] LABS: WBC 0-2 wbc/hpf (0-5)
== END 2023-08-28 06:08 | disposition home or self-care (01) ==
LOC: ED 04:52
PROVIDERS: Internal Medicine
DX: R33.9 Retention of urine, unspecified (principal); J44.9 Chronic obstructive pulmonary disease, unspecified; F32.A Depression, unspecified; F10.10 Alcohol abuse, uncomplicated; F17.200 Nicotine dependence, unspecified, uncomplicated; Z90.49 Acquired absence of other specified parts of digestive tract; Z98.890 Other specified postprocedural states

== ENCOUNTER 2023-09-17 11:21 | Emergency (ER) | payer MEDICARE ==
[~2023-09-17] VITALS: Ht 177.8 cm; Wt 53.5 kg
== END 2023-09-17 12:17 | disposition home or self-care (01) ==
LOC: ED 11:21
DX: T83.038A Leakage of other urinary catheter, initial encounter (principal); F17.200 Nicotine dependence, unspecified, uncomplicated; Z79.899 Other long term (current) drug therapy; Z98.890 Other specified postprocedural states; Z90.49 Acquired absence of other specified parts of digestive tract; Y84.8 Other medical procedures as the cause of abnormal reaction of the patient, or of later complication, without mention of misadventure at the time of the procedure; Y92.89 Other specified places as the place of occurrence of the external cause

== ENCOUNTER 2023-11-21 16:49 | Emergency (ER) | payer MEDICARE ==
[~2023-11-21] VITALS: Ht 177.8 cm; Wt 53.5 kg
[2023-11-21] MEDS ORDERED: Pantoprazole Sodium 40 MG VIAL IV ONE (17:05)
[2023-11-21] MEDS ORDERED: Metoclopramide Hydrochloride 10 MG/2 ML AMP IV ONE (17:05)
[2023-11-21] MEDS ORDERED: MORPHINE Sulfate 2 MG/ML SYR IV PRN (17:05)
[2023-11-21] MEDS ORDERED: FAMOTIDINE 50 ML IV ONE (17:05)
[2023-11-21] MEDS ORDERED: diphenhydrAMINE hydrochloride 50 MG/ML VIAL IV ONE (17:05)
[2023-11-21 17:32] LABS: BASO # 0.1 10*3/uL (0.0-0.1); BASO % 0.5 % (0.0-1.0); EOS # 0.1 10*3/uL (0.0-0.4); EOS % 0.8 % (1.0-4.0); HEMATOCRIT 37.9 % (42.0-52.0); LYMPH # 1.7 10*3/uL (1.3-4.4); LYMPH % 16.8 % (27.0-41.0); MEAN CELL VOLUME 96.7 fl (80.0-94.0); MEAN CORPUSCULAR HGB 33.7 pg (27.0-31.0); MEAN CORPUSCULAR HGB CONC 34.8 g/dl (33.0-37.0); MEAN PLATELET VOLUME 8.2 fl (9.6-12.3); MONO % 9.7 % (3.0-9.0); NEUT # 7.2 10*3/uL (2.3-7.9); NEUT % 71.8 % (47.0-73.0); PLATELET COUNT AUTOMATED 334 10*3/uL (130-400); RED BLOOD COUNT 3.92 10*6/uL (4.50-5.90); RED CELL DISTRI WIDTH 13.8 % (0-14.5); WHITE BLOOD COUNT 10.1 10*3/uL (4.8-10.8)
[2023-11-21 17:51] LABS: BUN 11 mg/dl (9-23); CHLORIDE 94 mmol/L (98-107); POTASSIUM 3.4 mmol/L (3.4-5.1)
[2023-11-21] MEDS ORDERED: KEPPRA250 MG PO (18:00)
[2023-11-21] MEDS ORDERED: PEPCID20 MG PO (18:14)
[2023-11-21] MEDS ORDERED: Ondansetron4 MG PO (18:14)
[2023-11-21] MEDS ORDERED: TRAMADOL HCL50 MG PO (18:14)
== END 2023-11-21 19:40 | disposition home or self-care (01) ==
LOC: ED 16:49
PROVIDERS: Emergency Medicine
DX: R07.89 Other chest pain (principal); K29.70 Gastritis, unspecified, without bleeding; M25.512 Pain in left shoulder; J44.9 Chronic obstructive pulmonary disease, unspecified; F41.9 Anxiety disorder, unspecified; F32.A Depression, unspecified; F17.200 Nicotine dependence, unspecified, uncomplicated; F10.10 Alcohol abuse, uncomplicated; Z90.49 Acquired absence of other specified parts of digestive tract; Z98.890 Other specified postprocedural states

== ENCOUNTER 2023-11-29 21:06 | Emergency (ER) | payer MEDICARE ==
[~2023-11-29] VITALS: Ht 172.7 cm; Wt 65.8 kg
[~2023-11-29 21:06] MED LIST changes: +KEPPRA250 MG PO; +Ondansetron4 MG PO; +PEPCID20 MG PO; +TRAMADOL HCL50 MG PO
[2023-11-29 22:34] LABS: BILIRUBIN Negative (Negative); BLOOD 3+ (Negative); CLARITY Cloudy (Clear); COLOR Yellow (Yellow); GLUCOSE Negative (Negative); KETONE Negative (Negative); LEUKO ESTERASE 3+ (Negative); NITRITE Positive (Negative); PH 5.5 (4.5-8.0); SPECIFIC GRAVITY <= 1.005 (1.001-1.030); UROBILINOGEN 0.2 E.U./dl (0.0-1.0)
[2023-11-29 22:42] LABS: RBC TNTC rbc/hpf (0-2); WBC 31-40 wbc/hpf (0-5)
[2023-11-29 22:43] LABS: BACTERIA 2+
[2023-11-29] MEDS ORDERED: Lidocaine Hydrochloride 5 ML AMP IM ONE (22:55)
[2023-11-29] MEDS ORDERED: AMOX-CLAV 875-1 EACH PO (23:36)
== END 2023-11-30 00:12 | disposition home or self-care (01) ==
LOC: ED 21:06
PROVIDERS: Emergency Medicine
DX: T83.091A Other mechanical complication of indwelling urethral catheter, initial encounter (principal); N39.0 Urinary tract infection, site not specified; J44.9 Chronic obstructive pulmonary disease, unspecified; F32.A Depression, unspecified; F41.9 Anxiety disorder, unspecified; F17.200 Nicotine dependence, unspecified, uncomplicated; F10.10 Alcohol abuse, uncomplicated; Z90.49 Acquired absence of other specified parts of digestive tract; Z98.890 Other specified postprocedural states; Y73.8 Miscellaneous gastroenterology and urology devices associated with adverse incidents, not elsewhere classified; Y92.009 Unspecified place in unspecified non-institutional (private) residence as the place of occurrence of the external cause

== ENCOUNTER 2024-01-02 16:15 | Emergency (ER) | payer MEDICARE ==
[~2024-01-02] VITALS: Ht 177.8 cm; Wt 59.0 kg
[~2024-01-02 16:15] MED LIST changes: +AMOX-CLAV 875-1 EACH PO
== END 2024-01-02 17:41 | disposition home or self-care (01) ==
LOC: ED 16:15
DX: T83.031A Leakage of indwelling urethral catheter, initial encounter (principal); F32.A Depression, unspecified; J44.9 Chronic obstructive pulmonary disease, unspecified; F10.10 Alcohol abuse, uncomplicated; F17.200 Nicotine dependence, unspecified, uncomplicated; Z98.890 Other specified postprocedural states; Z90.49 Acquired absence of other specified parts of digestive tract; Y73.8 Miscellaneous gastroenterology and urology devices associated with adverse incidents, not elsewhere classified; Y92.009 Unspecified place in unspecified non-institutional (private) residence as the place of occurrence of the external cause

== ENCOUNTER 2024-02-05 00:40 | Emergency (ER) | payer MEDICARE ==
[~2024-02-05] VITALS: Wt 62.5 kg
[2024-02-05] MEDS ORDERED: Carafate1 GM PO (01:00)
[2024-02-05] MEDS ORDERED: DULOXETINE HCL60 MG PO (01:00)
[2024-02-05 01:02] LABS: BASO # 0.1 10*3/uL (0.0-0.1); BASO % 0.8 % (0.0-1.0); EOS # 0.1 10*3/uL (0.0-0.4); EOS % 1.3 % (1.0-4.0); HEMATOCRIT 41.8 % (42.0-52.0); MEAN CELL VOLUME 95.9 fl (80.0-94.0); MEAN CORPUSCULAR HGB 31.9 pg (27.0-31.0); MEAN CORPUSCULAR HGB CONC 33.3 g/dl (33.0-37.0); MEAN PLATELET VOLUME 8.3 fl (9.6-12.3); MONO # 0.6 10*3/uL (0.1-1.0); NEUT # 5.1 10*3/uL (2.3-7.9); PLATELET COUNT AUTOMATED 343 10*3/uL (130-400); RED BLOOD COUNT 4.36 10*6/uL (4.50-5.90); RED CELL DISTRI WIDTH 12.2 % (0-14.5); WHITE BLOOD COUNT 7.8 10*3/uL (4.8-10.8)
[2024-02-05 01:22] LABS: BUN 7 mg/dl (9-23); CHLORIDE 91 mmol/L (98-107); ETHYL ALCOHOL 237.6 mg/dl (<3); POTASSIUM 3.7 mmol/L (3.4-5.1)
[2024-02-05] MEDS ORDERED: Ondansetron Hydrochloride 4 MG/2 ML VIAL IV ONE (01:30)
[2024-02-05] MEDS ORDERED: MULTIVITAMIN 1 TAB TAB PO ONE (03:40)
[2024-02-05] MEDS ORDERED: SODIUM CHLORIDE 0.9% 500 ML IV ONE (03:40)
[2024-02-05] MEDS ORDERED: FOLIC ACID 1 MG TAB PO ONE (03:40)
[2024-02-05] MEDS ORDERED: Thiamine 200 MG/2 ML VIAL IV ONE (03:40)
== END 2024-02-05 07:49 | disposition home or self-care (01) ==
LOC: ED 00:40
PROVIDERS: Internal Medicine
DX: F10.129 Alcohol abuse with intoxication, unspecified (principal); E87.1 Hypo-osmolality and hyponatremia; R51.9 Headache, unspecified; M25.512 Pain in left shoulder; F17.200 Nicotine dependence, unspecified, uncomplicated; Z79.899 Other long term (current) drug therapy; Z90.49 Acquired absence of other specified parts of digestive tract; Z98.890 Other specified postprocedural states; Y90.7 Blood alcohol level of 200-239 mg/100 ml

== ENCOUNTER 2024-03-13 12:32 | Emergency (ER) | payer OTHER ==
[~2024-03-13] VITALS: Ht 167.6 cm; Wt 56.7 kg
[~2024-03-13 12:32] MED LIST changes: +Carafate1 GM PO; +DULOXETINE HCL60 MG PO
== END 2024-03-13 12:54 | disposition home or self-care (01) ==
LOC: ED 12:32
DX: T83.091A Other mechanical complication of indwelling urethral catheter, initial encounter (principal); F32.A Depression, unspecified; J44.9 Chronic obstructive pulmonary disease, unspecified; F10.10 Alcohol abuse, uncomplicated; F17.200 Nicotine dependence, unspecified, uncomplicated; Z90.49 Acquired absence of other specified parts of digestive tract; Z98.890 Other specified postprocedural states; Y73.8 Miscellaneous gastroenterology and urology devices associated with adverse incidents, not elsewhere classified; Y92.009 Unspecified place in unspecified non-institutional (private) residence as the place of occurrence of the external cause

== ENCOUNTER 2024-03-23 21:10 | Emergency (ER) | payer OTHER ==
[~2024-03-23] VITALS: Ht 406.4 cm; Wt 56.7 kg
== END 2024-03-23 21:42 | disposition home or self-care (01) ==
LOC: ED 21:10
DX: T83.091A Other mechanical complication of indwelling urethral catheter, initial encounter (principal); F17.200 Nicotine dependence, unspecified, uncomplicated; Z90.49 Acquired absence of other specified parts of digestive tract; Z98.890 Other specified postprocedural states; Y73.8 Miscellaneous gastroenterology and urology devices associated with adverse incidents, not elsewhere classified; Y92.009 Unspecified place in unspecified non-institutional (private) residence as the place of occurrence of the external cause

== ENCOUNTER 2025-01-03 14:15 | Emergency (ER) | payer MEDICARE ==
[~2025-01-03 14:15] MED LIST changes: +CEFEPIME2 GM/100 M IV; +FINASTERIDE5 M1 PO; +OMNICEF300 MG PO; +PANTOPRAZOLE SO40 MG PO; +PREDNISONE10 MG PO; +TAB-A-VITE TA400 MCG PO; +VITAMIN D350 MCG PO
== END 2025-01-03 14:42 | disposition left against medical advice (07) ==
LOC: ED 14:15
DX: Z48.02 Encounter for removal of sutures (principal); Z53.21 Procedure and treatment not carried out due to patient leaving prior to being seen by health care provider

== ENCOUNTER 2025-02-13 16:32 | Emergency (ER) | payer MEDICARE ==
[~2025-02-13] VITALS: Wt 49.4 kg
[2025-02-13] MEDS ORDERED: SODIUM CHLORIDE 0.9% 500 ML IV ONE ×3 (17:04→17:23)
[2025-02-13] MEDS ORDERED: SODIUM CHLORIDE 0.9% 1,000 ML IV ONE (17:04)
[2025-02-13] MEDS ORDERED: Heparin Sodium/Sodium Chlori 1,000 UNITS/500 ML BAG IV SCH (17:05)
[2025-02-13] MEDS ORDERED: Ondansetron Hydrochloride 4 MG/2 ML VIAL IV ONE ×2 (17:10→19:30)
[2025-02-13 17:13] VITALS: BP 109/68
[2025-02-13 17:31] LABS: BASO # 0.0 10*3/uL (0.0-0.1); BASO % 0.3 % (0.0-1.0); EOS # 0.0 10*3/uL (0.0-0.4); EOS % 0.0 % (1.0-4.0); MEAN CELL VOLUME 92.0 fl (80.0-94.0); MEAN CORPUSCULAR HGB 30.9 pg (27.0-31.0); MEAN PLATELET VOLUME 9.1 fl (9.6-12.3); MONO # 0.8 10*3/uL (0.1-1.0); MONO % 9.7 % (3.0-9.0); NEUT # 6.3 10*3/uL (2.3-7.9); NEUT % 81.7 % (47.0-73.0); NUCLEATED RED BLOOD CELL 0.0 % (0.0-0.0); NUCLEATED RED BLOOD CELL 0.0 10*3/uL (0.0-0.0); PLATELET COUNT AUTOMATED 196 10*3/uL (130-400); RED CELL DISTRI WIDTH 13.5 % (0-14.5)
[2025-02-13] MEDS ORDERED: OCTREOTIDE ACETATE 500 MCG in SODIUM CHLORIDE 0.9% 100 ML IV SCH (17:35)
[2025-02-13 17:52] LABS: BUN 45.0 mg/dl (9-23); SGPT/ALT 13.0 U/L (5-49)
[2025-02-13 18:11] LABS: ACT PARTIAL THROMBO TIME 30.7 SECONDS (20.0-32.1)
== END 2025-02-13 21:02 | disposition short-term general hospital (02) ==
LOC: ED 16:32
PROVIDERS: Student in an Organized Health Care Education/Training Program
DX: K92.2 Gastrointestinal hemorrhage, unspecified (principal); F17.210 Nicotine dependence, cigarettes, uncomplicated; Z98.890 Other specified postprocedural states; Z90.49 Acquired absence of other specified parts of digestive tract; J44.9 Chronic obstructive pulmonary disease, unspecified